=== PATIENT | female | born 1970 | race Caucasian/White ===

== ENCOUNTER 2018-03-16 15:24 | Emergency (ER) | payer OTHER ==
[~2018-03-16] VITALS: Ht 152.4 cm; Wt 88.5 kg
[~2018-03-16 15:24] MED LIST: LANT3I SC; METO10TA92 PO; NOVO3I SC; PANT40TA3 PO; SIMV20TA PO; SUCR1TAB35 PO; TRAM50TA PO
[2018-03-16 15:26] VITALS: Ht 152.4 cm; Wt 88.5 kg
[2018-03-16] MEDS ORDERED: SOD CHLORIDE 0.9% 1,000 ML IV STA (19:16)
[2018-03-16] MEDS ORDERED: LIDOCAINE/MYLANTA 40 ML BTL PO STA (19:16)
[2018-03-16] MEDS ORDERED: METOCLOPRAMIDE 10 MG INJ IV STA (19:16)
[2018-03-16] MEDS ORDERED: KETOROLAC 30 MG INJ IV STA (19:16)
[2018-03-16 20:30] VITALS: BP 115/69; PULSE 68; RESP 23
[2018-03-16] MEDS ORDERED: LANT3I SC (20:49)
[2018-03-16] MEDS ORDERED: SIMV20TA PO (20:49)
[2018-03-16] MEDS ORDERED: NOVO3I SC (20:49)
[2018-03-16] MEDS ORDERED: PANT40TA3 PO (20:49)
[2018-03-16] MEDS ORDERED: SUCR1TAB35 PO (20:49)
--- NOTE | 2018-03-16 21:03 | ERD ---
ER Documentation Chief Complaint Chief Complaint cp with palpitations x 1 month HPI 47-year-old female with a history of diabetes, hypertension, high cholesterol, and gastritis presenting with complaints of palpitations in her chest that are intermittent. She also complains of a left-sided intermittent gradual onset moderate headache that she describes as aching and nonradiating. She also complains of occasional muscle cramps. She has a history of gastritis and is off of her medications for the past 3 months so she is having occasional epigastric aching pain as well with acid reflux. Patient has been off of all of her medications for the past 3 months due to insurance changing and her primary care doctor changing. She has not been able to see her primary care doctor to get a refill of her medications. Denies any recent illnesses, chest pain, SOB, fever, chills, vomiting, or diarrhea. ROS All systems reviewed and are negative except as per history of present illness. Medications Home Meds Active Scripts Simvastatin* (Zocor*) 20 Mg Tablet, 20 MG PO HS for 30 Days, TAB Prov:MISAEL VELASCO MD 03/16/18 Insulin Aspart* (Novolog Insulin Pen*) 100 Unit/Ml Soln, 10 UNIT SC WITH MEALS for 30 Days, 3 Refills Prov:MISAEL VELASCO MD 03/16/18 Insulin Glargine* (Lantus*) 100 Unit/Ml Soln, 20 UNIT SC HS for 30 Days, 3 Refills Prov:MISAEL VELASCO MD 03/16/18 Sucralfate (Carafate) 1 Gm Tab, 1 GM PO QID for 30 Days, TAB 2 Refills Prov:MISAEL VELASCO MD 03/16/18 Pantoprazole* (Protonix*) 40 Mg Tablet.dr, 40 MG PO BID for 30 Days, TAB 2 Refills Prov:MISAEL VELASCO MD 03/16/18 Discontinued Reported Medications Tramadol Hcl* (Ultram*) 50 Mg Tablet, 50 MG PO Q8 PRN for PAIN, TAB 06/06/14 Discontinued Scripts Metoclopramide* (Reglan*) 10 Mg Tab, 5 MG PO Q6H for 30 Days Prov:JENNIFER VEGAS 06/11/14 Allergies Allergies: Coded Allergies: No Known Allergy (Unverified , 03/16/18) PMhx/Soc Medical and Surgical Hx: pt denies Surgical Hx History of Surgery: No Anesthesia Reaction: No Hx Neurological Disorder: No Hx Respiratory Disorders: No Hx Cardiac Disorders: Yes (Hypertension) Hx Psychiatric Problems: No Hx Miscellaneous Medical Probl: Yes (High cholesterol, diabetes, gastritis) Hx Alcohol Use: No Hx Substance Use: No Hx Tobacco Use: No Smoking Status: Never smoker FmHx Family History: No coronary disease Physical Exam Vitals Vital Signs Date Temp Pulse Resp B/P (MAP) Pulse Ox O2 O2 Flow FiO2 Time Delivery Rate 03/16/18 98.3 79 16 166/95 96 Room Air 18:20 (118) 03/16/18 98.9 92 18 195/102 98 15:26 (133) Physical Exam Const: No acute distress Head: Atraumatic Eyes: Normal Conjunctiva, PERRLA, EOMI ENT: Normal External Ears, Nose and Mouth. TMs normal bilaterally Neck: Full range of motion. No meningismus. Resp: Clear to auscultation bilaterally Cardio: Regular rate and rhythm, no murmurs Abd: Soft, non tender, non distended. Normal bowel sounds Skin: No petechiae or rashes Back: No midline or flank tenderness Ext: No cyanosis, or edema. No calf tenderness Neur: Awake and alert, oriented, no facial asymmetry, strength and sensations intact in all 4 extremities Psych: Normal Mood and Affect Result Diagram: 03/16/18193403/16/181934 Results 24 hrs Laboratory Tests Test 03/16/18 19:25 03/16/18 19:35 03/16/18 20:17 POC Beta HCG, Qualitative NEGATIVE White Blood Count 7.1 10^3/ul Red Blood Count 4.77 10^6/ul Hemoglobin 13.9 g/dl Hematocrit 40.8 % Mean Corpuscular Volume 85.5 fl Mean Corpuscular Hemoglobin 29.1 pg Mean Corpuscular Hemoglobin Concent 34.1 g/dl Red Cell Distribution Width 12.3 % Platelet Count 234 10^3/UL Mean Platelet Volume 12.2 fl Immature Granulocytes % 0.100 % Neutrophils % 53.3 % Lymphocytes % 40.1 % Monocytes % 4.8 % Eosinophils % 1.4 % Basophils % 0.3 % Nucleated Red Blood Cells % 0.0 /100WBC Immature Granulocytes # 0.010 10^3/ul Neutrophils # 3.8 10^3/ul Lymphocytes # 2.8 10^3/ul Monocytes # 0.3 10^3/ul Eosinophils # 0.1 10^3/ul Basophils # 0.0 10^3/ul Nucleated Red Blood Cells # 0.0 10^3/ul Urine Color STRAW Urine Clarity CLEAR Urine pH 6.0 Urine Specific [place] 1.031 Urine Ketones 1+ mg/dL Urine Nitrite NEGATIVE mg/dL Urine Bilirubin NEGATIVE mg/dL Urine Urobilinogen NEGATIVE mg/dL Urine Leukocyte Esterase NEGATIVE Basim/ul Urine Hemoglobin NEGATIVE mg/dL Urine Glucose 3+ mg/dL Urine Total Protein NEGATIVE mg/dl Sodium Level 140 mmol/L Potassium Level 3.6 mmol/L Chloride Level 101 mmol/L Carbon Dioxide Level 28 mmol/L Anion Gap 11 Blood Urea Nitrogen 12 mg/dl Creatinine 0.43 mg/dl Est Glomerular Filtrat Rate mL/min > 60 mL/min Glucose Level 284 mg/dl Calcium Level 9.4 mg/dl Total Bilirubin 0.2 mg/dl Direct Bilirubin 0.00 mg/dl Indirect Bilirubin 0.2 mg/dl Aspartate Amino Transf (AST/SGOT) 23 IU/L Alanine Aminotransferase (ALT/SGPT) 16 IU/L Alkaline Phosphatase 181 IU/L Troponin I < 0.012 ng/ml Total Protein 7.8 g/dl Albumin 4.6 g/dl Globulin 3.20 g/dl Albumin/Globulin Ratio 1.43 Lipase 98 U/L Bedside Glucose 243 mg/dL Current Medications Medications Dose Sig/Kerry Start Time Status Last (Trade) Ordered Route PRN Stop Time Admin Dose Reason Admin Sodium 1,000 ml @ Q1H STAT 03/16/18 DC 03/16/18 Chloride 1,000 mls/hr IV 19:16 03/16/18 19:35 20:15 10 mg ONCE STAT 03/16/18 DC 03/16/18 Metoclopramid IV 19:16 03/16/18 19:34 e HCl 19:20 (Reglan) 40 ml ONCE STAT 03/16/18 DC 03/16/18 Miscellaneous PO 19:16 03/16/18 19:34 Medication 19:20 (Gi Cocktail (2)) Ketorolac 30 mg ONCE STAT 03/16/18 DC 03/16/18 Tromethamine IV 19:16 03/16/18 19:35 (Toradol) 19:20 Procedures/MDM EMERGENT LABS AND DIAGNOSTIC STUDIES: Lab Results above were reviewed and interpreted by me. CBC: no anemia or evidence of infection CMP: Hyperglycemic with no evidence of acidosis. No evidence of electrolyte abnormality, renal failure, hypoglycemia, liver failure, or biliary obstruction Lipase: no evidence of pancreatitis Troponin within normal limits, not indicative of cardiac ischemia UA: 1+ ketones, 3+ glucose. No evidence of infection 12-lead EKG was interpreted by Tosha Velasco MD: Normal Sinus Rhythm Normal axis Normal intervals No acute ST or T wave changes suggestive of acute ischemia or STEMI. Radiology Results as interpreted by Radiology below were reviewed by Victor M Velasco MD: Chest x-ray did not show any acute abnormalities Initial Nursing notes reviewed. Previous Medical Records requested via the Electronic Health Record. EMERGENCY DEPARTMENT COURSE / MEDICAL DECISION MAKING: Patient is presenting with multiple complaints, likely secondary to medication noncompliance. She does have hyperglycemia but no other significant abnormalities on her workup today. She was treated with IV fluids, Pepcid, GI cocktail, and Toradol for her symptoms with improvement. I feel the patient stable for discharge with a refill of her medications. I doubt any acute cardiac or pulmonary emergency. I do not suspect any intracranial hemorrhage or increased intracranial pressure.She has plans to follow-up with her primary care doctor very soon. Return precautions discussed. Patient's blood pressure was elevated (>120/80) but appears stable without evidence of hypertensive emergency or urgency. The patient was counseled about the risks of hypertension and urged to pursue outpatient monitoring and therapy within a week with their primary care physician. Departure Diagnosis: Primary Impression: Hyperglycemia Additional Impressions: Headache Headache type: unspecified Headache chronicity pattern: acute headache Intractability: not intractable Qualified Codes: R51 - Headache Heart palpitations Condition: Stable Patient Instructions: Hyperglycemia (High Blood Sugar), Palpitations [facility] Usted se bruno hecho un examen mdico de control que le indica que no est en sanchez condicin que requiera tratamiento urgente en el Departamento de Emergencia. Un estudio ms profundo y el tratamiento de alas condicin pueden esperar sin ningn riesgo hasta que usted sea atendida/o en el consultorio de alas mdico o sanchez clnica. Es responsabilidad suya arreglar sanchez lloyd para el seguimiento del clarissa. MANEJO DE CONDICIONES NO URGENTES EN EL FUTURO 1) Si usted tiene un mdico de atencin primaria: Usted debera llamar a alas mdico de atencin primaria antes de venir al departamento de emergencia. Despus de las horas de consultorio, alas doctor o alas asociado/a est disponible por telfono. El mdico o enfermero de cheryl en el servicio telefnico puede asesorarle por lan medio para atender el problema, o clarissa contrario se puede programar sanchez lloyd. 2) Si usted no tiene un mdico de atencin primaria: Llame al mdico o clnica de referencia que aparece abajo stevo las horas de consultorio para hacer sanchez lloyd para que le vean. CLINICAS: [facility] [phone] [facility] [phone] [facility] [phone] [address] [facility]. [facility] [phone] [address] [facility]. [facility] [phone] [address] [facility]. [phone] MISAEL PRESTON MD Mar 16, 2018 21:03
== END 2018-03-16 21:22 | disposition home or self-care (01) ==
LOC: E/R 15:24
DX: E11.65 Type 2 diabetes mellitus with hyperglycemia (principal); R51 Headache; R00.2 Palpitations; I10 Essential (primary) hypertension; Z79.4 Long term (current) use of insulin
CPT/HCPCS: 36415; 71045; 80053; 81003; 81025; 82962; 83690; 84484; 85025; 93005; 96374; 96375; J1885; J2765; J7030; Z7502; Z7610